=== PATIENT | male | born 1980 | race Caucasian/White ===

== ENCOUNTER 2017-03-16 12:53 | Emergency (ER) | payer MEDICAID, OTHER ==
[~2017-03-16] VITALS: Ht 167.6 cm; Wt 108.9 kg
--- NOTE | 2017-03-16 13:22 | ED Cough/URI ---
General Chief Complaint: Cough/Cold/Flu Symptoms Stated Complaint: COPD,COUGH,HEAD CONGESTION Source: patient Exam Limitations: no limitations History of Present Illness Time seen by provider: 13:21 Initial Comments To ER with reports of nasal congestion, cough, wheezing. He states he has a history of COPD. He continues to smoke. He does not have a physician. He is scheduled to see [facility] in March for an initial visit. Does not take any medications. He states that he has been short of breath for "a while" . He states symptoms are a little worse today. He does have a Combivent and formoterol inhaler which she got recently at the [facility] walk-in clinic Timing/Duration: constant Severity/Quality: dry cough Associated Symptoms: cough, shortness of breath, wheezing Allergies and Home Medications Allergies Coded Allergies: No Known Drug Allergies (Unverified , 03/16/17) Home Medications Albuterol/Ipratropium 4 Gm Aero, 2 PUFF IH, (Reported) Azithromycin 250 Mg Tablet, 250 MG PO UD, #6 TAKE 2 TABLETS ON DAY ONE THEN TAKE 1 TABLET DAILY FOR FOUR MORE DAYS Prescribed by: GREG HOYOS on 03/16/17 1401 Prednisone 20 Mg Tab, 40 MG PO DAILY, #8 Prescribed by: GREG HOYOS on 03/16/17 1401 Promethazine HCl/Codeine 5 Ml Syrup, 7.5 ML PO Q6H PRN for COUGH, #60 Prescribed by: GREG HOYOS on 03/16/17 1401 Constitutional: see HPI EENTM: see HPI, nose congestion Respiratory: see HPI, cough, short of breath Cardiovascular: no symptoms reported Genitourinary: no symptoms reported Musculoskeletal: no symptoms reported Skin: no symptoms reported Psychiatric/Neurological: No Symptoms Reported Hematologic/Lymphatic: No Symptoms Reported Immunological/Allergic: no symptoms reported Past Lssjlmw-Xevldo-Xhnlfz Hx Patient Social History Recent Foreign Travel: No Contact w/Someone Who Travel: No Physical Exam Vital Signs Vital Sign - Last 12Hours 03/16/17 13:26 Temp 98.5 Pulse 86 Resp 20 Pulse Ox 94 O2 Delivery Room Air Capillary Refill : General Appearance: WD/WN, no apparent distress Eyes: Bilateral Eye Normal Inspection, Bilateral Eye PERRL, Bilateral Eye EOMI HEENT: PERRL/EOMI, normal ENT inspection Neck: non-tender, full range of motion Respiratory: no respiratory distress, no accessory muscle use, decreased breath sounds, wheezing Cardiovascular: regular rate, rhythm, no murmur Gastrointestinal: normal bowel sounds, non tender, soft Neurologic/Psychiatric: alert, normal mood/affect, oriented x 3 Skin: normal color, warm/dry Progress/Results/Core Measures Suspected Sepsis SIRS Temperature: Pulse: Respiratory Rate: Laboratory Tests 03/16/17 13:50: White Blood Count 9.2 Blood Pressure / Mean: Laboratory Tests 03/16/17 13:50: Platelet Count 280 Results/Orders Lab Results Laboratory Tests Test 03/16/17 13:50 Range/Units White Blood Count 9.2 4.3-11.0 10^3/uL Red Blood Count 5.09 4.35-5.85 10^6/uL Hemoglobin 15.2 13.3-17.7 G/DL Hematocrit 44 40-54 % Mean Corpuscular Volume 86 80-99 FL Mean Corpuscular Hemoglobin 30 25-34 PG Mean Corpuscular Hemoglobin Concent 35 32-36 G/DL Red Cell Distribution Width 13.7 10.0-14.5 % Platelet Count 280 130-400 10^3/uL Mean Platelet Volume 9.3 7.4-10.4 FL Neutrophils (%) (Auto) 47 42-75 % Lymphocytes (%) (Auto) 39 12-44 % Monocytes (%) (Auto) 10 0-12 % Eosinophils (%) (Auto) 3 0-10 % Basophils (%) (Auto) 1 0-10 % Neutrophils # (Auto) 4.4 1.8-7.8 X 10^3 Lymphocytes # (Auto) 3.6 1.0-4.0 X 10^3 Monocytes # (Auto) 0.9 0.0-1.0 X 10^3 Eosinophils # (Auto) 0.2 0.0-0.3 10^3/uL Basophils # (Auto) 0.1 0.0-0.1 10^3/uL My Orders Orders - GREG HOYOS APRN Chest Pa/Lat (2 View) (03/16/17 13:19) Cbc With Automated Diff (03/16/17 13:19) Basic Metabolic Panel (03/16/17 13:19) Prednisone Tablet (Deltasone Tablet) (03/16/17 13:30) Albuterol/Ipra Inhalation Soln (Duoneb I (03/16/17 13:30) Svn Sm Volume Nebulizer Rt-Rfs (03/16/17 13:19) Troponin I (03/16/17 13:52) Medications Given in ED Current Medications Medications Dose Ordered Sig/Zain Route Start Time Stop Time Status Last Admin Dose Admin Albuterol/ Ipratropium 3 ml ONCE ONCE INH 03/16/17 13:30 03/16/17 13:31 DC 03/16/17 13:58 3 ML Prednisone 50 mg ONCE ONCE PO 03/16/17 13:30 03/16/17 13:31 DC 03/16/17 13:58 50 MG Vital Signs/I&O Vital Sign - Last 12Hours 03/16/17 13:26 Temp 98.5 Pulse 86 Resp 20 B/P (MAP) Pulse Ox 94 O2 Delivery Room Air Capillary Refill : Departure Impression Impression: Primary Impression: COPD exacerbation Disposition: HOME, SELF-CARE Condition: Stable Departure-Patient Inst. Decision time for Depature: 13:45 Referrals: NO,LOCAL PHYSICIAN (PCP/Family) Primary Care Physician Patient Instructions: Acute Bronchitis, Adult (DC) Add. Discharge Instructions: U must stop smoking All discharge instructions reviewed with patient and/or family. Voiced understanding. Scripts Promethazine HCl/Codeine (Prometh-Codein 6.25-10 mg/5 ml) 5 Ml Syrup 7.5 ML PO Q6H Y for COUGH, #60 ML Prov: GREG HOYOS APRN 03/16/17 Prednisone (Prednisone) 20 Mg Tab 40 MG PO DAILY, #8 TAB Prov: GREG HOYOS APRN 03/16/17 Azithromycin (Azithromycin) 250 Mg Tablet 250 MG PO UD, #6 TAB TAKE 2 TABLETS ON DAY ONE THEN TAKE 1 TABLET DAILY FOR FOUR MORE DAYS Prov: GREG HOYOS STUDIO DESIGNER 03/16/17 GREG HOYOS STUDIO DESIGNER Mar 16, 2017 13:22
[2017-03-16] MEDS ORDERED: RT-ALBUTEROL/IPRATROPIUM 3 ML (DUONEB) VIAL INH ONE (13:30)
[2017-03-16] MEDS ORDERED: predniSONE 10 MG TAB PO ONE (13:30)
--- NOTE | 2017-03-16 13:43 | Diagnostic Imaging Report ---
INDICATION: Cough and congestion. PA and lateral views were obtained. FINDINGS: The heart size, mediastinal configuration, and pulmonary vascularity are within normal limits. There is no pleural effusion, pneumothorax, or pneumonia. The osseous structures are unremarkable. IMPRESSION: No acute cardiopulmonary abnormality. Dictated by: Dictated on workstation # [id number]
[2017-03-16] MEDS ORDERED: IPRA4AER IH (13:54)
[2017-03-16 13:59] LABS: BASOPHILS # (AUTO) 0.1 10^3/uL (0.0-0.1); BASOPHILS % (AUTO) 1 % (0-10); EOSINOPHILS # (AUTO) 0.2 10^3/uL (0.0-0.3); EOSINOPHILS % (AUTO) 3 % (0-10); LYMPHOCYTES # (AUTO) 3.6 X 10^3 (1.0-4.0); LYMPHOCYTES % (AUTO) 39 % (12-44); MEAN CORPUSCULAR HEMOGLOBIN 30 PG (25-34); MEAN CORPUSCULAR HGB CONC 35 G/DL (32-36); MEAN CORPUSCULAR VOLUME 86 FL (80-99); MEAN PLATELET VOLUME 9.3 FL (7.4-10.4); MONOCYTES # (AUTO) 0.9 X 10^3 (0.0-1.0); MONOCYTES % (AUTO) 10 % (0-12); NEUTROPHILS # (AUTO) 4.4 X 10^3 (1.8-7.8); NEUTROPHILS % (AUTO) 47 % (42-75); PLATELET COUNT 280 10^3/uL (130-400); RED BLOOD COUNT 5.09 10^6/uL (4.35-5.85); RED CELL DISTRIBUTION WIDTH 13.7 % (10.0-14.5); WHITE BLOOD COUNT 9.2 10^3/uL (4.3-11.0)
[2017-03-16] MEDS ORDERED: AZIT250T12 PO (14:01)
[2017-03-16] MEDS ORDERED: PRD20T PO (14:01)
[2017-03-16] MEDS ORDERED: PROM5SYR PO (14:01)
[2017-03-16 14:19] LABS: ANION GAP 9 MMOL/L (5-14); BLOOD UREA NITROGEN 11 MG/DL (7-18); BUN/CREATININE RATIO 15; CALCIUM 9.5 MG/DL (8.5-10.1); CARBON DIOXIDE 25 MMOL/L (21-32); CHLORIDE 105 MMOL/L (98-107); CREATININE SERUM 0.75 MG/DL (0.60-1.30); GFR ESTIMATED > 60; GLUCOSE 86 MG/DL (70-105); POTASSIUM 4.2 MMOL/L (3.6-5.0); SODIUM 139 MMOL/L (135-145)
[2017-03-16 14:30] LABS: TROPONIN I < 0.30 NG/ML (<0.30)
[2017-03-16 14:37] VITALS: BP 132/90
== END 2017-03-16 14:37 | disposition home or self-care (01) ==
LOC: ER 12:57
DX: J44.1 Chronic obstructive pulmonary disease with (acute) exacerbation (principal)
CPT/HCPCS: 36415; 71020; 80048; 84484; 85025; 99283

== ENCOUNTER 2017-05-29 20:28 | Emergency (ER) | payer MEDICAID ==
[~2017-05-29] VITALS: Ht 167.6 cm; Wt 117.2 kg
[~2017-05-29 20:28] MED LIST: AZIT250T12 PO; IPRA4AER IH; PRD20T PO; PROM5SYR PO
[2017-05-29] MEDS ORDERED: RT-ALBUTEROL/IPRATROPIUM 3 ML (DUONEB) VIAL INH ONE (22:45)
[2017-05-29] MEDS ORDERED: RX-DOXYCYCLINE 100 MG (VIBRAMYCIN) TAB PPK#2 PO STA (23:51)
[2017-05-29] MEDS ORDERED: METH4TAB PO (23:56)
[2017-05-29] MEDS ORDERED: BENZ-13 PO (23:56)
[2017-05-29] MEDS ORDERED: GUAI1TBM19 PO (23:56)
[2017-05-29] MEDS ORDERED: DOXY100C42 PO (23:56)
--- NOTE | 2017-05-29 23:56 | ED Cough/URI ---
General Chief Complaint: Cough/Cold/Flu Symptoms Stated Complaint: CHEST PAIN Nursing Triage Note: PATIENT STATES THAT HE BEGAN TO FEEL PAIN IN HIS CHEST YESTERDAY WITH COUGHING AND UPPER EXTREM. MOVEMENTS. HE STATES THAT THIS PAIN BECAME WORSE TODAY. Source: patient History of Present Illness Date Seen by Provider: May 29, 2017 Time Seen by Provider: 22:45 Initial Comments PT STATES HE HAS COPD AND HAS A CHRONIC COUGH AND SHORTNESS OF BREATH, BUT HAS BEEN WORSE THE LAST COUPLE OF DAYS HAS BEEN HAVING PAIN IN CENTER OF CHEST WITH COUGHING FOR THE LAST COUPLE OF DAYS--WORSE THIS MORNING HAS SYMBICORT AND USES BID, ALSO HAS PRO AIR RESCUE INHALER--LAST USED AT 1700 NO FEVER NO HEADACHE OR BODY ACHES BOTH KIDS HAVE HAD THE FLU LAST WEEK PT HAS NOT TAKEN ANYTHING FOR PAIN PT CONTINUES TO SMOKE 2-[address] SANABRIA Allergies and Home Medications Allergies Coded Allergies: No Known Drug Allergies (Unverified , 03/16/17) Home Medications Albuterol/Ipratropium 4 Gm Aero, 2 PUFF IH, (Reported) Azithromycin 250 Mg Tablet, 250 MG PO UD, #6 TAKE 2 TABLETS ON DAY ONE THEN TAKE 1 TABLET DAILY FOR FOUR MORE DAYS Prescribed by: GREG HOYOS on 03/16/17 1401 Benzonatate 100 Mg Capsule, 1-2 TAB PO TID, #30 Prescribed by: MOHIT MASTERS on 05/29/17 2356 Doxycycline Monohydrate 100 Mg Capsule, 100 MG PO BID, #20 Prescribed by: MOHIT MASTERS on 05/29/17 2356 Guaifenesin/Dextromethorphan 1 Each Tbmp.12hr, 1 EACH PO BID for 10 Days, #20 Prescribed by: MOHIT MASTERS on 05/29/17 2356 Methylprednisolone 4 Mg Tab.ds.pk, 4 MG PO UD, #1 Prescribed by: MOHIT MASTERS on 05/29/172355 Prednisone 20 Mg Tab, 40 MG PO DAILY, #8 Prescribed by: GREG HOYOS on 03/16/17 1401 Promethazine HCl/Codeine 5 Ml Syrup, 7.5 ML PO Q6H PRN for COUGH, #60 Prescribed by: GREG HOYOS on 03/16/17 1401 Constitutional: no symptoms reported, No chills, No dizziness, No fever EENTM: no symptoms reported, No nose congestion Respiratory: see HPI, cough, dyspnea on exertion, No phlegm, short of breath, No wheezing Cardiovascular: see HPI, chest pain Gastrointestinal: no symptoms reported Genitourinary: no symptoms reported Musculoskeletal: no symptoms reported Skin: no symptoms reported Psychiatric/Neurological: No Symptoms Reported, Denies Headache Past Gtjtrjv-Nrsomo-Edyfjx Hx Patient Social History Alcohol Use: Occasionally Uses Number of Drinks Today: 0 Alcohol Beverage of Choice: Beer Recreational Drug Use: Yes Smoking Status: Current Everyday Smoker (2-3 PPD) Type Used: Cigarettes (2-3 PPD), Electronic/Vapor Recent Foreign Travel: No Contact w/Someone Who Travel: No Recent Infectious Disease Expo: No Recent Hopitalizations: No Surgeries History of Surgeries: Yes Surgeries: Orthopedic Respiratory History of Respiratory Disorde: Yes Respiratory Disorders: COPD Cardiovascular History of Cardiac Disorders: No Neurological History of Neurological Disord: No Genitourinary History of Genitourinary Disor: No Gastrointestinal History of Gastrointestinal Di: No Musculoskeletal History of Musculoskeletal Dis: No Endocrine History of Endocrine Disorders: No HEENT History of HEENT Disorders: No Cancer History of Cancer: No Psychosocial History of Psychiatric Problem: Yes Behavioral Health Disorders: ADD/ADHD, Anxiety, Depression Integumentary History of Skin or Integumenta: No Blood Transfusions History of Blood Disorders: No Physical Exam Vital Signs Vital Signs - First Documented 05/29/17 05/29/17 21:00 21:03 Temp 98.4 Pulse 105 Resp 22 B/P (MAP) 194/106 (135) Pulse Ox 93 O2 Delivery Room Air Capillary Refill : Less Than 3 Seconds General Appearance: WD/WN, no apparent distress, other (REEKS OF CIGARETTES) HEENT: PERRL/EOMI, normal ENT inspection, TMs normal, pharynx normal Neck: non-tender, full range of motion, supple, normal inspection Respiratory: no respiratory distress, no accessory muscle use, decreased breath sounds, No rales, No rhonchi, No wheezing, other (MID STERNAL TENDERNESS- -PALPATION REPRODUCES PAIN ) Cardiovascular: normal peripheral pulses, regular rate, rhythm, no edema, no murmur Gastrointestinal: non tender, soft Extremities: normal inspection, no pedal edema, no calf tenderness, normal capillary refill Neurologic/Psychiatric: unit assistant II-XII nml as tested, no motor/sensory deficits, alert, normal mood/affect, oriented x 3 Skin: normal color, warm/dry, tattoos/piercings (EXTENSIVE TATTOOS) Progress/Results/Core Measures Suspected Sepsis Recent Fever Within 48 Hours: No Infection Criteria Present: None New/Unexplained Altered Menta: No Sepsis Screen: No Definite Risk Sepsis Diagnosis: SIRS Temperature:98.4 Pulse: 105 Respiratory Rate: 22 Blood Pressure 194 /106 Mean: 135 Results/Orders Micro Results Microbiology 05/29/17 Influenza Types A,B Antigen (SAM) - Final, Complete My Orders Orders - MOHIT MASTERS DO Influenza A And B Antigens (05/29/17 22:45) Chest Pa/Lat (2 View) (05/29/17 22:45) Albuterol/Ipra Inhalation Soln (Duoneb I (05/29/17 22:45) Rt Request For Service (05/29/17 22:45) Svn Sm Volume Nebulizer Rt-Rfs (05/29/17 22:45) Rx-Doxycycline Tablet (Rx-Vibramycin Tab (05/29/17 23:51) Promethazine/ Codeine Syrup (Phenergan W (05/30/17 00:00) Benzonatate Capsule (Tessalon Perles) (05/30/17 00:00) Medications Given in ED Vital Signs/I&O Vital Sign - Last 12Hours 05/29/17 05/29/17 05/29/17 21:00 21:03 22:58 Temp 98.4 Pulse 105 Resp 22 B/P (MAP) 194/106 (135) Pulse Ox 93 95 O2 Delivery Room Air Room Air Room Air Capillary Refill : Less Than 3 Seconds Blood Pressure Mean: 135 Progress Note : Progress Note FEELS BETTER AFTER NEB TREATMENT, INCREASED AERATION Diagnostic Imaging Comments CXR--NO ACUTE PROCESS, PENDING RADIOLOGIST REVIEW Reviewed: Reviewed by Me Departure Impression Impression: Primary Impression: Bronchitis Additional Impressions: Chest wall pain COPD (chronic obstructive pulmonary disease) with acute bronchitis Disposition: 01 HOME, SELF-CARE Condition: Improved Departure-Patient Inst. Referrals: [facility] (PCP/Family) Primary Care Physician Patient Instructions: Acute Bronchitis, Adult (DC), COPD Including Emphysema ( DC), Costochondritis (DC) Add. Discharge Instructions: CONTINUE SUDAFED AND FLONASE CONTINUE YOUR INHALERS PRESCRIBED FOLLOW UP WITH YOUR DR IN 3-4 DAYS IF NO BETTER All discharge instructions reviewed with patient and/or family. Voiced understanding. Scripts Benzonatate (Tessalon Perle) 100 Mg Capsule 1-2 TAB PO TID for Cough, #30 CAP Prov: MOHIT MASTERS DO 05/29/17 Guaifenesin/Dextromethorphan (Mucinex Dm ER 1,200-60 mg Tab) 1 Each Tbmp.12hr 1 EACH PO BID for 10 Days, #20 EA Prov: MOHIT MASTERS DO 05/29/17 Methylprednisolone (Medrol) 4 Mg Tab.ds.pk 4 MG PO UD, #1 PKG Prov: MOHIT MASTERS DO 05/29/17 Doxycycline Monohydrate (Doxycycline Monohydrate) 100 Mg Capsule 100 MG PO BID, #20 CAP Prov: MOHIT MASTERS DO 05/29/17 OMHIT MASTERS DO May 29, 2017 23:56
[2017-05-30] MEDS ORDERED: BENZONATATE 100 MG (TESSALON) CAPSULE PO SCH
[2017-05-30] MEDS ORDERED: PROMETHAZINE/ CODEINE SYRUP 5 ML UDC PO ONE
[2017-05-30 00:06] VITALS: BP 174/101
--- NOTE | 2017-05-30 06:57 | Diagnostic Imaging Report ---
EXAM: CHEST PA/LAT (2 VIEW) INDICATION: Chest pain COMPARISON: Chest radiograph 03/16/2017. FINDINGS: Normal heart size and pulmonary vascularity. No focal pulmonary opacity, pleural effusion or pneumothorax. Osseous structures are unremarkable. No significant change. IMPRESSION: No acute cardiopulmonary findings. Dictated by: Dictated on workstation # [id number]
== END 2017-05-30 00:06 | disposition home or self-care (01) ==
LOC: EDUNIT# 20:28 → ER 20:29
DX: J44.9 Chronic obstructive pulmonary disease, unspecified (principal); F41.9 Anxiety disorder, unspecified; F32.9 Major depressive disorder, single episode, unspecified; F90.9 Attention-deficit hyperactivity disorder, unspecified type; F17.210 Nicotine dependence, cigarettes, uncomplicated; Z79.52 Long term (current) use of systemic steroids
CPT/HCPCS: 71046; 87804; 94640; 99283